=== PATIENT | male | born 1970 | race Caucasian/White ===

== ENCOUNTER 2016-11-23 09:28 | Emergency (ER) | payer MEDICAID ==
[2016-11-23 09:49] VITALS: BP 113/65; PULSE 77; RESP 20; TEMP 97; O2SAT 97
--- NOTE | 2016-11-23 09:59 | ED PDOC ---
HPI: Eye Injury/Pain Time Seen by Provider: 11/23/16 09:41 Chief Complaint (Nursing): Eye Problem Chief Complaint (Provider): eye problem History Per: Patient History/Exam Limitations: no limitations Onset/Duration Of Symptoms: Days (x 1) Additional Complaint(s): Pt is a 45 year old male, with a previous medical history of sarcoidosis, who presents to the ED with complaints of bilateral eye crusting, burning and itching ongoing for 1 day. Pt woke up with his eyes stuck together from the dried crust. He denies any visual changes and also reports running out of prednisone (for his sarcoidosis) and is requesting a refill. PMD: none at present Past Medical History Reviewed: Historical Data, Nursing Documentation, Vital Signs Vital Signs: Last Vital Signs Temp 97 F L 11/23/16 09:38 Pulse 77 11/23/16 09:38 Resp 20 11/23/16 09:38 BP 113/65 11/23/16 09:38 Pulse Ox 97 11/23/16 09:38 - Medical History PMH: Depression Other PMH: Sarcoidosis - Family History Family History: States: Diabetes, Other Other Family History: Cancer - Immunization History Hx Tetanus Toxoid Vaccination: No Hx Influenza Vaccination: Yes Hx Pneumococcal Vaccination: No - Home Medications Home Medications: Ambulatory Orders Medication Instructions Recorded Prednisone 20 mg PO DAILY 04/20/15 Loratadine [Claritin] 10 mg PO DAILY PRN #15 tab 09/20/15 Prednisone 20 mg PO DAILY #3 tablet 09/20/15 Moxifloxacin HCl [Vigamox] 1 drop BOTHEYES TID #1 bottle 11/23/16 predniSONE [predniSONE Tab] 1 tab PO DAILY #30 tab 11/23/16 - Allergies Allergies/Adverse Reactions: Allergies Allergy/AdvReac Type Severity Reaction Status Date / Time sulfamethoxazole Allergy Verified 09/20/15 19:22 [From Bactrim] trimethoprim [From Bactrim] Allergy Verified 09/20/15 19:22 seafood Allergy Uncoded 09/20/15 19:22 Review of Systems ROS Statement: Except As Marked, All Systems Reviewed And Found Negative Constitutional: Negative for: Fever Eyes: Positive for: Conjunctivae Inflammation, Eyelid Inflammation. Negative for: Vision Change Respiratory: Negative for: Shortness of Breath Gastrointestinal: Negative for: Nausea, Vomiting Physical Exam - Reviewed Nursing Documentation Reviewed: Yes Vital Signs Reviewed: Yes - Physical Exam Appears: Positive for: Well, Non-toxic, No Acute Distress Head Exam: Positive for: ATRAUMATIC, NORMAL INSPECTION, NORMOCEPHALIC Skin: Positive for: Normal Color, Warm, Dry Eye Exam: Positive for: EOMI, PERRL, Conjunctival injection (bilateral ), Other (discharge from bilateral eyes ). Negative for: Nystagmus ENT: Positive for: Normal ENT Inspection Neck: Positive for: Normal Cardiovascular/Chest: Positive for: Regular Rate, Rhythm Respiratory: Positive for: CNT, Normal Breath Sounds Rectal: Positive for: Deferred Extremity: Positive for: Normal ROM Neurologic/Psych: Positive for: Alert, Oriented. Negative for: Motor/Sensory Deficits - ECG O2 Sat by Pulse Oximetry: 97 (RA) Pulse Ox Interpretation: Normal Medical Decision Making Medical Decision Making: Initial Impression: Conjunctivitis Initial Plan: Discharge the patient with eye drops and prescription refill for prednisone (as he ran out) Scribe Attestation: Documented by Va Franco, acting as a scribe for Gerard Stovall DO. Provider Scribe Attestation: All medical record entries made by the Scribe were at my direction and personally dictated by me. I have reviewed the chart and agree that the record accurately reflects my personal performance of the history, physical exam, medical decision making, and the department course for this patient. I have also personally directed, reviewed, and agree with the discharge instructions and disposition. Disposition - Clinical Impression Clinical Impression: Conjunctivitis, Sarcoidosis - Disposition Referrals: Iraida Crespo MD [Staff Provider] - [facility] [Outside] Disposition: Routine/Home Disposition Time: 09:56 Condition: FAIR Additional Instructions: Mr. Philip, thank you for letting us take care of you today. Return to the ER if your symptoms worsen, or if any problems. Take the medication listed below as prescribed. You do need a doctor to take care of you for your chronic sarcoidosis--Please call Dr. Crespo's office at the phone number below so you can be treated for this. Prescriptions: Moxifloxacin HCl [Vigamox] 1 drop BOTHEYES TID #1 bottle predniSONE [predniSONE Tab] 1 tab PO DAILY #30 tab Instructions: Sarcoidosis (ED), Conjunctivitis (ED) Forms: [employer] ([place] Citizen) Print Language: SENEGALESE
== END 2016-11-23 10:16 | disposition home or self-care (01) ==
LOC: H.ER 09:28
DX: H10.9 Unspecified conjunctivitis (principal)